=== PATIENT | female | born 1975 | race Caucasian/White ===

== ENCOUNTER 2018-01-14 06:12 | Observation (INO) | payer BC ==
[2018-01-12 15:34] VITALS: BMI 36.0
[~2018-01-14] VITALS: Ht 157.5 cm; Wt 91.0 kg
[2018-01-14] VITALS (11 sets, daily range): BP systolic 115–153; BP diastolic 66–100; PULSE 71–90; TEMP 36.5–37.2; O2SAT 95–100; Ht 157.5 cm; Wt 91.0 kg
[~2018-01-14 06:12] MED LIST: EPP3/2 IM; LACTATED RINGER'S 1000ML 1,000 ML IV SCH; LEVO100T7 PO; METO25TA4 PO
[2018-01-14] MEDS ORDERED: FENTANYL CITRATE INJ 50 MCG/1 ML 2 ML VIAL IV PRN (06:30)
[2018-01-14] MEDS ORDERED: ONDANSETRON INJ 2 MG/ML 2 ML VIAL IV PRN (06:30)
[2018-01-14] MEDS ORDERED: PROMETHAZINE HCL INJ 12.5 MG in SODIUM CHLORIDE 0.9% 50ML 50 ML IV PRN (06:30)
[2018-01-14] MEDS ORDERED: ATROPINE SULFATE 0.1 MG/ML 5ML SYR IV PRN (06:30)
[2018-01-14] MEDS ORDERED: PHENYLEPHRINE 100MCG/ML 5ML SYR IV PRN (06:30)
[2018-01-14] MEDS ORDERED: EpHEDrine SULFATE INJ 50 MG/ML AMP IV PRN (06:30)
[2018-01-14] MEDS ORDERED: HYDROmorphone INJ 0.5 MG/0.5 ML SYR IV PRN (06:30)
[2018-01-14] MEDS ORDERED: MIDAZOLAM HCL 1 MG/ML 2ML VIAL ONE ×2 (07:53→08:47)
[2018-01-14] MEDS ORDERED: FENTANYL CITRATE INJ 50 MCG/1 ML 2 ML VIAL ONE ×2 (07:54→11:34)
--- NOTE | 2018-01-14 08:17 | History and Physical ---
History & Physical Date Jan 14, 2018. Chief Complaint palpitations History of Present Illness The patient is a 42 year old female with complaints of palpitations Past Medical/Surgical History carpal tunnel surgery right hand biopsy Additional History Hepatic Disease: No Endocrine Disorder: Yes Kidney Disease: No Hypertension: Yes Heart Disease: No Bleeding Tendencies: No Infectious Diseases: No Allergies Uncoded Allergies: BEE STINGS (Allergy, Unknown, ANAPHYLAXIS, 01/14/18) Home Medications Scheduled Epinephrine (Epipen), 0.3 MG IM UD Levothyroxine Sodium (Levothyroxine Sodium), 1 TAB PO DAILY Metoprolol Succinate (Toprol Xl), 25 MG PO DAILY Physical Examination Skin: warm/dry, no rash Eyes: EOMI ENT: normal ENT inspection Head: normocephalic, atraumatic Neck: supple Respiratory/Chest: lungs clear, normal breath sounds Cardiovascular: regular rate, rhythm, no edema, no murmur Abdomen / GI: normal bowel sounds, non tender Back: normal inspection Extremities: normal inspection Neurologic/Psych: alert, oriented x 3 Diagnosis 1. SVT 2. htn 3. hld 4. hypothyroidism ASA Classification: ASA Class II Plan of Treatment pt for eps with possible ablation; rediscussed the risks and the procedure; consent obtained
[2018-01-14] MEDS ORDERED: LIDOCAINE HCL 2% 2 ML VIAL (20MG/ML) ONE (08:46)
[2018-01-14] MEDS ORDERED: PROPOFOL IV EMULSION 10 MG/ML 20 ML VIAL ONE (08:46)
[2018-01-14] MEDS ORDERED: ONDANSETRON INJ 2 MG/ML 2 ML VIAL ONE (08:47)
[2018-01-14] MEDS ORDERED: IV FLUIDS COMPLETED PRN (10:30)
--- NOTE | 2018-01-14 11:54 | [facility] Post Operative Brief Note ---
Immediate Operative Summary Operative Date Jan 14, 2018. Pre-Operative Diagnosis svt Post-Operative Diagnosis typical AVNRT Procedure(s) Performed EPS, 3d mapping of the His bundle cloud, radiofrequency ablation for a slow pathway modification Surgeon maria teresa barrett Payroll And Benefits Coordinator Surgeon(s) none Estimated Blood Loss <5cc Findings See Below see official report Fluids (cc crystalloids) 800cc Specimens none Drains None Anesthesia Type MAC Complication(s) none Disposition Accompanied Pt To Recover: yes Disposition: PCU Overlapping Procedure I was present for: the critical portions of procedure. I was immediately available: during the entire case Back up surgeon: was not required during procedure
--- NOTE | 2018-01-14 11:57 | Discharge Instructions ---
Discharge Instructions Date of Service Jan 14, 2018. Admission Reason for Admission: Supraventricular Tachycardia Discharge Discharge Diagnosis / Problem: AVNRT Discharge Goals Goal(s): Improve function Activity Recommendations Activity Limitations: as noted below Lifting Limitations: no more than 10 pounds (no heavy lifting or squating for 1 week) Shower/Bathe: tomorrow Driving or Machine Use: resume 1 day after discharge . Instructions / Follow-Up Instructions / Follow-Up ACTIVITY RECOMMENDATIONS: It is common to feel weak and fatigue for a few days. * Do not drive or operate any motorized equipment for the next 1 day. * Limit stair usage (2 or 3 trips a day only) for the next three days. * Do not lift anything heavier than 10 pounds for the next 5 days. * Do not engage in vigorous exercise or any sports for the next five days. * You may shower the day after your procedure, but do not immerse the area for three days. Cleanse the site gently with soap and water. SPECIAL CARE INSTRUCTIONS: * You may replace the pressure dressing or band-aid the morning after the procedure. * After your procedure, it is normal to have a small bruise or small lump at the site. Examine your site daily for any change in the bruise or lump, redness, swelling, drainage or numbness. Notify your doctor if any change. BLEEDING: * If there is a small amount of bleeding at the site, lie down and apply firm pressure with a clean cloth for ten minutes. When the bleeding stops, lie quietly keeping the procedure limb straight for six hours. Notify your doctor as soon as possible. * If the bleeding does not stop after ten minutes or if there is a large amount of bleeding or spurting, call 911 immediately. Continue to lie down and hold firm pressure until help arrives. SKIN IRRITATION: * You may experience some redness and/or swelling in the area where radiation was administered. If any skin irritation occurs, please contact your family physician. FOLLOW UP VISIT: Keep any scheduled doctor appointments. Current Hospital Diet Patient's current hospital diet: Regular Diet Discharge Diet Recommended Diet: Regular Diet Procedures Procedures Performed: EPS, 3d mapping of the His bundle cloud, radiofrequency ablation for a slow pathway modification Pending Studies Studies pending at discharge: no Medical Emergencies . Who to Call and When: Medical Emergencies: If at any time you feel your situation is an emergency, please call 911 immediately. . Non-Emergent Contact Non-Emergency issues call your: Pattern Data Operator . . "Provider Documentation" section prepared by Jeana Braun. .
[2018-01-14] MEDS ORDERED: ACETAMINOPHEN 325 MG TAB PO PRN (12:00)
--- NOTE | 2018-01-14 12:01 | Discharge Summary ---
Discharge Summary Date of Service Jan 14, 2018. Discharge Summary Admission Date: 01/14/2018 Discharge Date: Jan 15, 2018 Discharge Disposition: Home Principal Diagnosis: Typical AVNRT s/p slow pathway modification Secondary Diagnoses/Problems: HTN Hypothyroidism Procedures: EPS, 3d mapping of his bundle, radiofrequency ablation for a slow pathway modification Medication Reconciliation Continued Medications: Epinephrine (Epipen) 0.3 Mg/0.3 Ml Inj 0.3 MG IM UD, BOX Levothyroxine Sodium (Levothyroxine Sodium) 100 Mcg Tab 1 TAB PO DAILY for 30 Days, #30 TAB 5 Refills Discontinued Medications: Metoprolol Succinate (Toprol Xl) 25 Mg Tabcr 25 MG PO DAILY, #30 TAB Admission Information Physical Exam (per Admitting): aaox3, NAD Supple, No JVD Nrl S1/S2, no murmur CTA b/l No w/r/r Soft NT/ND No edema b/l No focal deficits Skin intact Hospital Course Pt admitted for elective EPS with possible ablation due to SVT. She underwent procedure found to have typical AVNRT underwent radiofrequency ablation for a slow pathway modification without any complications. Monitored overnight and discharged home. Total time spent on discharge = > 30 minutes This includes examination of the patient, discharge planning, medication reconciliation, and communication with other providers. Discharge Instructions ACTIVITY RECOMMENDATIONS: It is common to feel weak and fatigue for a few days. * Do not drive or operate any motorized equipment for the next 1 day. * Limit stair usage (2 or 3 trips a day only) for the next three days. * Do not lift anything heavier than 10 pounds for the next 5 days. * Do not engage in vigorous exercise or any sports for the next five days. * You may shower the day after your procedure, but do not immerse the area for three days. Cleanse the site gently with soap and water. SPECIAL CARE INSTRUCTIONS: * You may replace the pressure dressing or band-aid the morning after the procedure. * After your procedure, it is normal to have a small bruise or small lump at the site. Examine your site daily for any change in the bruise or lump, redness, swelling, drainage or numbness. Notify your doctor if any change. BLEEDING: * If there is a small amount of bleeding at the site, lie down and apply firm pressure with a clean cloth for ten minutes. When the bleeding stops, lie quietly keeping the procedure limb straight for six hours. Notify your doctor as soon as possible. * If the bleeding does not stop after ten minutes or if there is a large amount of bleeding or spurting, call 911 immediately. Continue to lie down and hold firm pressure until help arrives. SKIN IRRITATION: * You may experience some redness and/or swelling in the area where radiation was administered. If any skin irritation occurs, please contact your family physician. FOLLOW UP VISIT: Keep any scheduled doctor appointments.
--- NOTE | 2018-01-14 12:58 | Anesthesiology Progress Note ---
Anesthesia Post Op Note Date & Time Jan 14, 2018 at 12:58 Vital Signs Pain Intensity: 0 Vital Signs Past 12 Hours Date Time Temp Pulse Resp B/P (MAP) Pulse Ox O2 Delivery O2 Flow Rate FiO2 01/14/18 12:30 36.8 88 18 139/97 (111) 96 01/14/18 12:15 36.8 90 18 147/100 (116) 96 Room Air 01/14/18 12:10 85 16 126/86 (99) 98 Room Air 01/14/18 12:00 91 16 137/104 (115) 98 Room Air 01/14/18 11:50 75 16 138/65 (89) 98 Room Air 01/14/18 06:53 36.7 78 16 153/95 (114) 100 Room Air Notes Mental Status: alert / awake / arousable, participated in evaluation Pt Amnestic to Procedure: Yes Nausea / Vomiting: adequately controlled Pain: adequately controlled Airway Patency, RR, SpO2: stable & adequate BP & HR: stable & adequate Hydration State: stable & adequate Anesthetic Complications: no major complications apparent
[2018-01-14] MEDS ORDERED: NURSING VERBAL MED ORDER ONE ×2 (13:15→14:30)
[2018-01-14] MEDS ORDERED: OXYCODONE/ACETAMINOPHEN 5-325 TAB ONE (13:18)
[2018-01-14] MEDS ORDERED: OXYCODONE/ACETAMINOPHEN 5-325 TAB PO PRN (13:30)
[2018-01-14] MEDS ORDERED: OXYCODONE/ACETAMINOPHEN 5-325 TAB PO ONE (13:30)
--- NOTE | 2018-01-14 14:28 | OPERATIVE REPORT ---
DATE OF OPERATION: 01/14/2018 PREOPERATIVE DIAGNOSIS: Supraventricular tachycardia. POSTOPERATIVE DIAGNOSIS: Typical atrioventricular zachary reentrant tachycardia. PROCEDURE: Electrophysiology study, 3D mapping of the His bundle region, radiofrequency ablation for slow pathway modification. SURGEON: Jeana Braun DO SUPERVISOR PARTIAL DENTURE DEPARTMENT: None. ANESTHESIA: Monitored anesthetic care administered via anesthesiology, a total of 6 mg of Versed, 20 mcg of fentanyl, 750 mg of propofol, 60 mg of lidocaine, additional meds 4 mg of Zofran. IV FLUIDS: 800 mL. BLOOD LOSS: Less than 5 mL. COMPLICATIONS: None. URINE OUTPUT: Not applicable. SPECIMENS: None. FINDINGS: See below. DRAINS: None. INDICATIONS: This is a 42-year-old female with past medical history of hypertension, hypothyroidism, and recurrent SVT where she needed to go to the Emergency Room and get adenosine for it with a rate at 222 beats per minute. Due to the recurrent episode of SVT, she has now decided to undergo an electrophysiology study with possible ablation. CONSENT: Consent was obtained prior to the patient going into the electrophysiology lab. Patient was informed the risks, benefits, and alternatives of the procedure. Risks include but not limited to sudden cardiac , cardiac arrhythmias, cerebrovascular accident, myocardial infarction, injury to the blood vessels, chamber of the heart or the [place] electrical system where she would need a permanent pacemaker, bleeding and infection. The patient understood these risks and agreed to the procedure as planned. Informed consent was obtained. DESCRIPTION OF THE PROCEDURE: The patient was brought into electrophysiology lab in a fasting state. She was connected to continuous shelter monitor. A timeout was performed to ensure patient's identity and procedure correctly. The patient received prophylactic and the patient received moderate anesthetic care administered via anesthesiology for patient's comfort level throughout the case. [place] precautions were maintained throughout the procedure. 10 mL of 1% lidocaine were given in the bilateral groins. Then using the modified Seldinger technique, venous access was obtained in the following manner. The left femoral vein had a 6-Latvian sheath, followed by a Janet quadripolar catheter positioned in the right ventricular apex. A 7-[place] sheath followed by a Hisser quadripolar catheter positioned over the His bundle region. A 7-[place] sheath followed by a [facility] Decapolar DF curve coronary sinus catheter positioned out in the coronary sinus. The right femoral vein had initially a 6-[place] sheath followed by a quadripolar catheter positioned in the high right atrium and eventually an SRO sheath followed by the Biosense 4 mm DF curve ablation catheter. With the catheters in position, an electrophysiology study was performed with the following findings: GA interval 142 milliseconds, QRS 74 milliseconds, QT 360 milliseconds, sinus cycle length 782 milliseconds, AH 124 milliseconds, HV 48 milliseconds, AV Wenckebach was probably around 350 milliseconds; however, when I was trying to determine it, the patient easily went into SVT with a tachycardia cycle length at 354 milliseconds. The VA time was 52 milliseconds, the retrograde A was concentric and with ventricular burst of entrainment there was a VAV response with continuation of the tachycardia. I was able to easily induce tachycardia repeatedly even at 600/360 [address] train. So, I could not do any more atrial analysis. I did do calculate the preablation right ventricular ERP to be 600/220 and 400/200. With diagnosis of typical AVNRT, we set up to do an ablation. At this point, using the modified Seldinger technique, the right femoral vein was accessed again and an SRO sheath was inserted without any resistance. The ablation catheter was placed into the heart and we did 3D mapping of the His bundle region as well as the coronary sinus os. Then we placed the 3D ablation catheter low on the right atrial septum and gave a series of meneses at 20 krishnan for only 10-15 seconds because I was getting a lot of very quick junctionals that seem to be persisting a little bit once I went off. After a series of meneses, I decided to see if she could be reinduced. I was able to reinduce her SVT, so I went back in a second time to do more ablation, targeted a little bit different area in the right septal and I did increase the wattage to 25. After given a series of meneses, I went back in to do a post-ablation electrophysiology study and once again was able to induce SVT. It was a little bit more difficult, I was only able to induce with single and it was not as long lasting. So I went back in the third time to give another series of meneses, positioned in the low right atrial septum region with the krishnan remaining at 25 krishnan. I still got some junctional rhythms during it and I was able to stay on a little bit longer. I then went back after giving a series of more radiofrequency meneses. I then went back to do an electrophysiology study for the third time post-ablation. This time again, I was not able to induce the AVNRT until I was doing drive train at 400/210 and it was still short lasting, but I still went back in a fourth time to give another series of meneses. Even after the fourth time though it still did not seem, I still was able to induce briefly; so I went back the fifth time and gave a little bit more septal meneses and I did notice a ridge in that area and I had very nice slow junctionals and I was able to stay on for a good minute. After the meneses like that, I went back and did an electrophysiology study with no inducible SVT and the following findings: The GA interval 169 milliseconds, QRS 78 milliseconds, QT 334 milliseconds, AH 108 milliseconds, HV 62 milliseconds. Sinus cycle length 674 milliseconds, AV Wenckebach 350 milliseconds. The AV node ERP was less than or equal to the atrial ERP and the atrial ERP was 600/220 and 400/230. The right ventricular ERP was 600/240 and 400/210. I gave up to triples from the high right atrium at [address] without any inducible SVT as well as no evidence. I have discussed that. At this point that I felt confident that we had initially got her arrhythmia. All the catheters were then removed from the body and the sheaths were pulled and held with manual compression to establish hemostasis. IMPRESSION: 1. Easily inducible typical atrioventricular zachary reentry tachycardia. 2. Successful slow pathway modification. PLAN: Monitor patient overnight, 12-lead ECG. She is not allowed to do any heavy lifting or squatting for 1 week. I will talk to her to see what her hypertensive medicine was; if it was metoprolol, then she can just continue that; if it was something else, then we will back to the other one and she will follow up in my office in 1 month's time. I attest to the content of the Intraoperative Record and any orders documented therein. Any exception s are noted below.
[2018-01-15 04:17] VITALS: BP 131/75; PULSE 76; TEMP 37; O2SAT 99
[2018-01-15] MEDS ORDERED: LEVOTHYROXINE 100 MCG TAB PO SCH (06:00)
[2018-01-15 07:05] VITALS: BP 121/69; PULSE 70; TEMP 36.7; O2SAT 98
[2018-01-15 08:57] VITALS: BP 121/69; PULSE 70; TEMP 36.7; O2SAT 98
[2018-01-15] MEDS ORDERED: METOPROLOL SUCC 25MG EXT REL TAB PO SCH (09:00)
== END 2018-01-15 09:47 | disposition home or self-care (01) ==
LOC: C.CATH 06:12 → ENRESERV 10:17 → C.2E 11:56
PROVIDERS: ADMIT Internal Medicine; ATTEND Internal Medicine
DX: I47.1 Supraventricular tachycardia (principal); R00.2 Palpitations; I10 Essential (primary) hypertension; E78.5 Hyperlipidemia, unspecified; E03.9 Hypothyroidism, unspecified; Z91.030 Bee allergy status; Z79.899 Other long term (current) drug therapy